=== PATIENT | male | born 1940 | race Caucasian/White ===

== ENCOUNTER 2017-08-16 18:42 | Emergency (ER) | payer BC ==
[~2017-08-16] VITALS: Ht 171.4 cm; Wt 109.1 kg
[~2017-08-16 18:42] MED LIST: /ADVA50050; /OMEP10CA; /QUIN10TA; /TAMS4CA; ACET500C PO; ACET65TA; ADV100INH INH; ADV500INH INH; ALBU17IN2 INH; AMLO5TAB2 PO; ASPI81TA85 PO; ATOR1TAB19 PO; AUGM875T28 PO; BABY81CH; FISH1000 PO; LIPI10TA; METO1TAB33 PO; MOME50SP; MOTR200T4; NASONEX; NIAC1TAB5 PO; OMEP20CA3 PO; PRIL20CA; TAMS0.4C2 PO; TOPR100T
[2017-08-16] MEDS ORDERED: KETOROLAC (18:51)
[2017-08-16] MEDS ORDERED: CIPR0.3S (18:51)
[2017-08-16] MEDS ORDERED: PREDOPD (18:51)
[2017-08-16] MEDS ORDERED: TETANUS/DIPHTHERIA TOX ADSORB ADULT 0.5ML SYR/VIAL (90714) IM ONE (19:45)
--- NOTE | 2017-08-16 20:20 | REPUSA ---
CT of the head Clinical history: trauma. Protocol: Multiple axial CT images obtained with 5 mm slice thickness were obtained through the head without administration of contrast. Findings: The ventricles and sulci are symmetric but prominent in size bilaterally. There are periven tricular areas of low attenuation throughout the deep white matter. There is no evidence of acute hem orrhage or infarct. There is no midline shift, mass effect, or extra-axial fluid collection. The osse ous structures are unremarkable. The visualized paranasal sinuses and mastoid air cells are clear. Impression: No acute hemorrhage or infarct. Findings are consistent with age-related atrophy and [employer] small vessel ischemic disease.
--- NOTE | 2017-08-16 20:20 | REPUSA ---
CT of the facial bones without contrast Clinical history: Pain, injury. Technique: Multiple axial CT images were obtained through the facial bones and paranasal sinuses util izing 3 mm axial slices without administration of contrast. Coronal and sagittal reconstructions were also obtained. Findings: The visualized paranasal sinuses are clear. The osteomeatal complexes are patent bilaterall y. The nasal septum is deviated rightward. The visualized mastoid air cells are clear. The osseous st ructures do not demonstrate any acute abnormalities. The superficial soft tissues are within normal l imits. Impression: No acute fracture or traumatic injury.
[2017-08-16 21:15] VITALS: BP 147/69
== END 2017-08-16 21:18 | disposition home or self-care (01) ==
LOC: EDBD 18:42 → M ED 18:42
DX: S00.33XA Contusion of nose, initial encounter (principal); W01.198A Fall on same level from slipping, tripping and stumbling with subsequent striking against other object, initial encounter; Y92.017 Garden or yard in single-family (private) house as the place of occurrence of the external cause; Y93.89 Activity, other specified; Y99.8 Other external cause status; I71.4 Abdominal aortic aneurysm, without rupture; I10 Essential (primary) hypertension; J32.9 Chronic sinusitis, unspecified; N40.0 Benign prostatic hyperplasia without lower urinary tract symptoms; E78.70 Disorder of bile acid and cholesterol metabolism, unspecified; Z79.51 Long term (current) use of inhaled steroids; Z79.899 Other long term (current) drug therapy; Z86.718 Personal history of other venous thrombosis and embolism

== ENCOUNTER → 2019-05-27 | Outpatient (CLI) | payer BC ==
[~2019-05-27] MED LIST changes: -/ADVA50050; -/QUIN10TA; -/TAMS4CA; +ACCU1TAB; +ADVA1AER2; -AMLO5TAB2 PO; +AMLO5TAB6 PO; +CIPR0.3S; +FLOM0.4C39; +KETOROLAC; +METO-745; -OMEP20CA3 PO; +OMEP20CA4 PO; +PREDOPD; -TOPR100T
--- NOTE | 2019-05-27 16:14 | REP ---
Lumbar spine five views: There is demineralization. There is mild scoliosis convex right at the thoracolumbar junction. Vertebral body heights are normal. There is moderate degenerative disc disease at L2-3 and L3-4. There is advanced degenerative disc disease at L5 S1. I suspect there is bilateral spondylolysis. There is grade 1 L5 spondylolisthesis. There is facet osteoarthritis. The pedicles are unremarkable. Sacroiliac articulations are unremarkable. There are multiple confluent opacities superimposed over the right iliac crest of uncertain significance, possibly ingested material or possibly packing of some sort. Impression: Multilevel degenerative disc disease as described. Possible bilateral L5 spondylolysis. Grade 1 L5 spondylolisthesis. Unusual confluent opacities superimposed over the right iliac crest. Electronically Signed by Sang Will MD 05/27/2019 04:05 P
== END ==
LOC: M WUC 15:42
PROVIDERS: ATTEND Internal Medicine
DX: M51.36 Other intervertebral disc degeneration, lumbar region (principal); M43.16 Spondylolisthesis, lumbar region; M54.30 Sciatica, unspecified side